=== PATIENT | female | born 1970 | race Caucasian/White ===

== ENCOUNTER 2021-09-01 20:10 | Emergency (ER) | payer OTHER ==
[~2021-09-01] VITALS: Ht 165.1 cm; Wt 66.2 kg
[2021-09-01 20:30] VITALS: BP 125/69
--- NOTE | 2021-09-01 21:15 | NUR ---
PATIENT LEFT WITHOUT BEING SEEN BY DR. THOMAS. NO FURTHER CARE PROVIDED FOR PATIENT.
== END 2021-09-01 23:15 | disposition left against medical advice (07) ==
LOC: MED 20:10
DX: M54.50 Low back pain, unspecified (principal); Z53.21 Procedure and treatment not carried out due to patient leaving prior to being seen by health care provider